=== PATIENT | female | born 1975 | race Caucasian/White ===

== ENCOUNTER 2024-01-06 17:28 | Emergency (ER) | payer BC, OTHER ==
[2024-01-06 17:48] VITALS: BP 108/67; PULSE 86; RESP 18; TEMP 98.4; BMI 26.5
[2024-01-06] MEDS ORDERED: DIPHTH,PERTUSS(ACELL),TET 0.5 ML DISP.SYRIN IM ONE (18:59)
[2024-01-06] MEDS: DIPHTH,PERTUSS(ACELL),TET 0.5 ML DISP.SYRIN IM ONE (19:05)
== END 2024-01-06 19:06 | disposition home or self-care (01) ==
LOC: JER 17:28 → JERFT 17:28
PROC: 3E0234Z Introduction of Serum, Toxoid and Vaccine into Muscle, Percutaneous Approach (ICD-10-PCS; principal; 2024-01-06)
DX: S61.211A Laceration without foreign body of left index finger without damage to nail, initial encounter (principal); W26.8XXA Contact with other sharp object(s), not elsewhere classified, initial encounter; Z23 Encounter for immunization
CPT/HCPCS: 90715; 99283-25

== ENCOUNTER 2024-11-15 10:42 | Emergency (ER) | payer BC, OTHER ==
[2024-11-15 10:48] VITALS: BP 117/53; PULSE 75; RESP 20; TEMP 99.2; BMI 26.5
[2024-11-15 12:03] LABS: ABSOLUTE IMMATURE GRANULOCYTES 0.01 x10^3/uL (0.0-0.031); BASOPHILS # 0.02 x10^3/uL (0.01-0.08); EOSINOPHIL % 0.4 % (0.7-5.8); EOSINOPHILS # 0.02 x10^3/uL (0.04-0.36); HEMATOCRIT 36.4 % (34.1-44.9); HEMOGLOBIN 11.8 g/dL (11.2-15.7); MCHC 32.4 g/dl (32.2-35.5); MEAN CELL VOLUME 81.8 fl (79.4-94.8); MEAN PLT VOLUME 9.9 fl (9.4-12.3); MONOCYTE # 0.29 x10^3/uL (0.24-0.86); MONOCYTE % 6.2 % (4.7-12.5); PLATELET COUNT 237 x10^3/uL (182-369); RDW 14.1 % (12.3-16.6)
[2024-11-15 12:30] LABS: POTASSIUM 4.4 mmol/L (3.5-5.1)
[2024-11-15 12:32] LABS: ALBUMIN 3.8 g/dl (3.4-5.0); CALCIUM 9.8 mg/dL (8.5-10.1)
[2024-11-15 12:33] LABS: BLOOD UREA NITROGEN 15.4 mg/dL (7-18)
[2024-11-15 12:36] LABS: CREATININE 0.8 mg/dL (0.55-1.3)
[2024-11-15 12:37] LABS: BILIRUBIN,TOTAL 0.4 mg/dL (0.2-1); TOT PROT 7.2 g/dl (6.4-8.2)
== END 2024-11-15 14:05 | disposition left against medical advice (07) ==
LOC: JER 10:42
DX: O03.9 Complete or unspecified spontaneous abortion without complication (principal)
CPT/HCPCS: 36415; 80053; 84702; 85025; 86850; 86900; 86901; 99283-25